=== PATIENT | male | born 1965 | race Caucasian/White ===

== ENCOUNTER → 2020-02-18 | Outpatient (CLI) | payer SELFPAY ==
[2020-02-18 17:16] LABS: HEMATOCRIT 46.6 % (42.0-52.0); MEAN CORPUSCULAR HEMOGLOBIN 33.5 pg (27.0-33.0); MEAN CORPUSCULAR HGB CONC 34.3 g/dl (32.0-36.5); MEAN CORPUSCULAR VOLUME 97.7 fl (80.0-96.0); PLATELET COUNT, AUTOMATED 282 10^3/uL (150-450); RED BLOOD COUNT 4.77 10^6/uL (4.30-6.10); WHITE BLOOD COUNT 6.2 10^3/uL (4.0-10.0)
[2020-02-18 17:49] LABS: ALT/SGPT 39 U/L (12-78); BILIRUBIN,TOTAL 0.6 MG/DL (0.2-1.0); BLOOD UREA NITROGEN 21 MG/DL (7-18); CALCIUM LEVEL 8.8 MG/DL (8.5-10.1); CARBON DIOXIDE LEVEL 28 MEQ/L (21-32); CHLORIDE LEVEL 107 MEQ/L (98-107); CPK CREATINE PHOSPHOKINASE 144 U/L (39-308); CREATININE FOR GFR 0.67 MG/DL (0.70-1.30); GLOMERULAR FILTRATION RATE > 60.0 (>56); GLUCOSE, FASTING 85 MG/DL (70-100); POTASSIUM SERUM 4.2 MEQ/L (3.5-5.1); SODIUM LEVEL 140 MEQ/L (136-145); TOTAL PROTEIN 7.5 GM/DL (6.4-8.2)
--- NOTE | 2020-02-19 02:12 | REP ---
Clinical: Shortness of breath . Comparison: None . Technique: PA and lateral. Findings: The mediastinum and cardiac silhouette are normal. The lung pabon are clear and without acute consolidation, effusion, or pneumothorax. The skeletal structures are intact and normal. Impression: 1. No acute cardiopulmonary process. Electronically Signed by Aidan Muller MD 02/19/2020 02:03 A
[2020-02-19 14:10] LABS: CHOLESTEROL LEVEL 170 MG/DL (<200); CHOLESTEROL RISK RATIO 3.269 (<5); HDL CHOLESTEROL 52 MG/DL (>40); LDL CHOLESTEROL 89 MG/DL (<100); NON-HDL-C 118 MG/DL; TRIGLYCERIDES LEVEL 147 MG/DL (<150)
== END ==
LOC: M LRY 09:22
PROVIDERS: ATTEND Nurse Practitioner Family
DX: I10 Essential (primary) hypertension (principal); E78.5 Hyperlipidemia, unspecified; R06.02 Shortness of breath

== ENCOUNTER → 2020-06-14 | Outpatient (CLI) | payer SELFPAY ==
[2020-06-15 16:31] LABS: THYROID STIMULATING HORMONE 1.43 uIU/ML (0.358-3.740)
== END ==
LOC: M LRY 15:58
PROVIDERS: ATTEND Nurse Practitioner Family
DX: R53.83 Other fatigue (principal)

== ENCOUNTER 2021-04-24 09:48 | Emergency (ER) | payer MEDICAID, SELFPAY ==
[~2021-04-24] VITALS: Ht 175.3 cm; Wt 92.1 kg
[2021-04-24] MEDS ORDERED: BUDE10.7 IH (09:56)
[2021-04-24] MEDS ORDERED: LISI20TA33 PO (09:56)
--- NOTE | 2021-04-24 11:30 | REP ---
INDICATION: HYPERTENSIVE URGENCY/EMERGENCY COMPARISON: 02/18/2020. TECHNIQUE: PA/Lateral FINDINGS: Lungs: Clear, no infiltrate. There is mild linear discoid atelectasis bilaterally in the lung bases. Heart: Normal in size. Mediastinum: Mediastinal silhouette unremarkable. Pleural angles: Unremarkable.. Bones and soft tissues: Unremarkable. IMPRESSION: No acute pulmonary disease. <Electronically signed by Luther Anderson > 04/24/21 [id number]
[2021-04-24 11:46] LABS: BASO % 0.6 % (0.0-1.0); EOS % 0.4 % (0.0-3.0); LYMPH # 1.5 10^3/uL (1.5-5.0); LYMPH % 21.5 % (24.0-44.0); MEAN CORPUSCULAR HEMOGLOBIN 33.5 pg (27.0-33.0); MEAN CORPUSCULAR VOLUME 98.4 fl (80.0-96.0); MONO # 0.8 10^3/uL (0.0-0.8); MONO % 10.6 % (2.0-8.0); NEUTROPHILS # 4.7 10^3/uL (1.5-8.5); NEUTROPHILS % 66.6 % (36.0-66.0); PLATELET COUNT, AUTOMATED 231 10^3/uL (150-450); RED BLOOD COUNT 5.08 10^6/uL (4.30-6.10); WHITE BLOOD COUNT 7.1 10^3/uL (4.0-10.0)
[2021-04-24 11:47] LABS: APPEARANCE, URINE CLEAR (CLEAR); BACTERIA, URINE AUTO NEGATIVE (NEGATIVE); BILIRUBIN, URINE AUTO NEGATIVE (NEGATIVE); BLOOD, URINE BLOOD NEGATIVE (NEGATIVE); COLOR, URINE YELLOW (YELLOW); GLUCOSE, URINE (UA) AUTO NEGATIVE (NEGATIVE); KETONE, URINE AUTO NEGATIVE (NEGATIVE); LEUKOCYTE ESTERASE, URINE AUTO NEGATIVE (NEGATIVE); MUCUS, URINE SMALL (NEGATIVE); NITRITE, URINE AUTO NEGATIVE (NEGATIVE); PROTEIN, URINE AUTO NEGATIVE (NEGATIVE); RBC, URINE AUTO 1 /HPF (0-3); SPECIFIC GRAVITY URINE AUTO 1.021 (1.002-1.035); SQUAMOUS EPITHELIAL CELL UR AU 0 /HPF (0-6); UROBILINOGEN, URINE AUTO 0.2 mg/dL (0.0-2.0); WBC, URINE AUTO 1 /HPF (0-3)
--- NOTE | 2021-04-24 11:57 | REP ---
INDICATION: RIH. COMPARISON: None TECHNIQUE: Standard inguinal sonography techniques utilized. FINDINGS: Examination of the right inguinal canal shows bowel with peristalsis within the canal along with some peritoneal fat. This is not fully reducible. Exam performed with Valsalva and relaxed techniques. IMPRESSION: 1. Right inguinal hernia with peristalsing bowel seen within the canal along with omental fat. This does not fully reduce. No other finding. <Electronically signed by Poncho Sim > 04/24/21 [id number]
[2021-04-24 12:13] LABS: BLOOD UREA NITROGEN 21 MG/DL (7-18); CALCIUM LEVEL 9.7 MG/DL (8.5-10.1); CARBON DIOXIDE LEVEL 28 MEQ/L (21-32); CHLORIDE LEVEL 104 MEQ/L (98-107); CREATININE FOR GFR 0.86 MG/DL (0.70-1.30); GLOMERULAR FILTRATION RATE > 60.0 (>56); GLUCOSE, FASTING 102 MG/DL (70-100); POTASSIUM SERUM 4.2 MEQ/L (3.5-5.1); SODIUM LEVEL 137 MEQ/L (136-145)
[2021-04-24 12:45] VITALS: BP 193/112
--- NOTE | 2021-04-24 22:00 | ECGEPIP ---
[facility] - ED Test Date: 2021-04-24 Pat Name: JEANNE HDEZ Department: Room: - Gender: Male Director Human Services: : [id number] Requested By: Leidy Saenz PA-C Order Number: [id number] Reading MD: Jaswant Nava Measurements Intervals [place] Rate: 63 P: 53 OK: 152 QRS: -57 QRSD: 98 T: 48 QT: 430 QTc: 440 Interpretive Statements Normal sinus rhythm LEFT AXIS DEVIATION Comparison tracing not on file Electronically Signed on 04-24-2021 22:00:07 EDT by Jaswant Nava
[2021-05-29] MEDS ORDERED: CBD OIL SL (07:53)
[2021-05-29] MEDS ORDERED: VALS1TAB67 PO (07:53)
[2021-05-29] MEDS ORDERED: CYAN500T14 PO (07:53)
[2021-05-29] MEDS ORDERED: acid reducer PO (07:57)
== END 2021-04-24 12:48 | disposition home or self-care (01) ==
LOC: M ED 09:48
DX: K40.31 Unilateral inguinal hernia, with obstruction, without gangrene, recurrent (principal); I10 Essential (primary) hypertension; J44.9 Chronic obstructive pulmonary disease, unspecified; F17.200 Nicotine dependence, unspecified, uncomplicated

== ENCOUNTER → 2021-06-05 | Outpatient (CLI) | payer SELFPAY ==
[~2021-06-05] MED LIST: BUDE10.7 IH; CBD OIL SL; CYAN500T14 PO; LISI20TA33 PO; VALS1TAB67 PO; acid reducer PO
== END ==
LOC: M LABSMTC 09:19
PROVIDERS: ATTEND Anesthesiology
DX: Z01.812 Encounter for preprocedural laboratory examination (principal); Z20.822 Contact with and (suspected) exposure to COVID-19

== ENCOUNTER 2021-06-09 07:19 | Day surgery (SDC) | payer MEDICAID, SELFPAY ==
[~2021-06-09] VITALS: Ht 175.3 cm; Wt 90.7 kg
[~2021-06-09 07:19] MED LIST changes: +LR 1,000 ML IV ONE; +ceFAZolin SOD 2 GM in IV 1 EA IV ONE
[2021-06-09] MEDS ORDERED: ALPR0.25 (07:51)
[2021-06-09] MEDS ORDERED: LABE100T5 PO (07:53)
[2021-06-09] MEDS ORDERED: LABE100T4 PO (07:53)
[2021-06-09] MEDS ORDERED: BUPIVACAINE/EPIN 0.25% 30 ML VIAL As Ordered ONE (09:22)
[2021-06-09] MEDS ORDERED: LIDOCAINE 2% 100MG/5ML SDV (FOR ANES.) As Ordered ONE (09:52)
[2021-06-09] MEDS ORDERED: MIDAZOLAM INJ 2MG/2ML VIAL (J2250 PER 1MG) As Ordered ONE (09:52)
[2021-06-09] MEDS ORDERED: dexameTHASONE 4 MG/ML 1ML VIAL (J1100 PER 1MG) As Ordered ONE (09:52)
[2021-06-09] MEDS ORDERED: ONDANSETRON 4MG/2ML VIAL As Ordered ONE (09:52)
[2021-06-09] MEDS ORDERED: KETOROLAC 60MG 2ML VIAL As Ordered ONE (09:52)
[2021-06-09] MEDS ORDERED: propofoL 200 MG/20 ML VIAL As Ordered ONE (09:52)
[2021-06-09] MEDS ORDERED: fentaNYL 250 MCG/5 ML INJECTION (J3010) As Ordered ONE (09:52)
[2021-06-09] MEDS ORDERED: PHENYLephrine 500MCG 5ML (100MCG/ML) SYRINGE As Ordered ONE (09:52)
[2021-06-09] MEDS ORDERED: SUGAMMADEX SODIUM 500 MG/5 ML VIAL (BRIDION) As Ordered ONE (09:52)
[2021-06-09] MEDS ORDERED: ROCURONIUM BROMIDE 50 MG/5 ML VIAL As Ordered ONE ×2 (09:52→10:02)
[2021-06-09] MEDS ORDERED: ACETAMINOPHEN 1000MG 100ML IV BTL (OFIRMEV) (J0131 PER 10MG) As Ordered ONE (10:04)
[2021-06-09] MEDS ORDERED: fentaNYL 100 MCG/2 ML INJECTION (J3010) IV PRN (11:35)
[2021-06-09] MEDS ORDERED: LR 1,000 ML IV SCH (11:35)
[2021-06-09] MEDS ORDERED: oxyCODONE 5MG TAB PO PRN (11:35)
[2021-06-09] MEDS ORDERED: METOCLOPRAMIDE INJ 10MG/2ML VIAL (J2765 PER 1) IV PRN (11:35)
[2021-06-09] MEDS ORDERED: ONDANSETRON 4MG/2ML VIAL IV PRN (11:35)
[2021-06-09] MEDS ORDERED: NORCO, ANEXSIA 5/325MG TABLET (HYDROcodone/ACETAMINOPHEN) PO PRN (11:35)
[2021-06-09 11:59] VITALS: BP 122/83
--- NOTE | 2021-06-09 15:25 | RO ---
OPERATIVE NOTE DATE OF OPERATION: 06/09/2021 PREOPERATIVE DIAGNOSIS: Right inguinal hernia. POSTOPERATIVE DIAGNOSIS: Right inguinal hernia. PROCEDURE: Robotic right inguinal hernia repair. SURGEON: Dr. Luther Cleveland MAINTENANCE ENGINEER OIL FIELD: Zena Stuart ANESTHESIA: General. ESTIMATED BLOOD LOSS: 5 COMPLICATIONS: None. INDICATIONS FOR PROCEDURE: Patient is a 55-year-old male who presents with truss on and a right inguinal hernia. Recommendation was to proceed with robotic repair. Risks and benefits of the procedure, not limited to, but including, bleeding, infection, hernia recurrent, hernia formation, damage to surrounding structures, and need for further surgery were discussed with the patient, and informed consent was obtained. DESCRIPTION OF PROCEDURE: Patient was brought back to the operating room #7. After sufficient sedation, the abdomen was sterilely prepped and draped. Next, a time-out was done to confirm proper patient, proper procedure. Following that, an 8 mm incision was made in the left upper quadrant, Veress needle inserted, and the abdomen was insufflated with 15 mmHg. Veress needle was then removed, and an 8 mm OptiView port was used to gain access to the abdomen. Once the abdomen was entered, two more ports were placed, one in the midline, one in the right upper quadrant. Next, the robot was docked to the ports. From the console, the right lower quadrant was examined. A curved incision was made into the peritoneal. The preperitoneal space was dissected free medially and laterally. The indirect hernia sac was then dissected free from all the cord structures and completely reduced posteriorly. Once that was completed, a Bard 3DMax Light medium mesh was placed in the preperitoneal space, sutured at the pubic symphysis. Also sutured laterally to hold it in place. The peritoneal was then closed over top of it and sutured closed with a 2-0 V-Loc suture. The abdomen was then desufflated. Skin incisions were closed with 4-0 subcuticular suture. The abdomen was cleaned and dried, and Steri-Strips, 4 x 4, and tape were applied, thus ending procedure.
== END 2021-06-09 12:14 | disposition home or self-care (01) ==
LOC: M SDC 07:19
PROVIDERS: ATTEND Surgery
DX: K40.90 Unilateral inguinal hernia, without obstruction or gangrene, not specified as recurrent (principal); I10 Essential (primary) hypertension; J44.9 Chronic obstructive pulmonary disease, unspecified; K21.9 Gastro-esophageal reflux disease without esophagitis; F17.218 Nicotine dependence, cigarettes, with other nicotine-induced disorders
CPT/HCPCS: 49650; C1781; J0131; J1100; J1885; J2250; J2370; J2405; J3010; S2900